=== PATIENT | male | born 1975 | race Caucasian/White ===

== ENCOUNTER 2018-01-11 12:12 | Emergency (ER) | payer SELFPAY ==
[~2018-01-11] VITALS: Ht 172.7 cm; Wt 73.7 kg
[2018-01-11] MEDS ORDERED: DEBROX15 ML RIGHT EAR (14:22)
[2018-01-11] MEDS ORDERED: FLONASE16 G1 BOTH NARES (15:16)
[2018-01-11 15:23] VITALS: BP 118/76
== END 2018-01-11 15:25 | disposition home or self-care (01) ==
LOC: EME 12:12
PROC: 09C0XZZ Extirpation of Matter from Right External Ear, External Approach (ICD-10-PCS; principal; 2018-01-11)
DX: H61.21 Impacted cerumen, right ear (principal)
CPT/HCPCS: 99281; 99283